=== PATIENT | male | born 1990 | race Caucasian/White ===

== ENCOUNTER 2021-02-03 08:00 | Observation (INO) | payer BC ==
[~2021-02-03] VITALS: Ht 182.9 cm; Wt 112.9 kg
[~2021-02-03 08:00] MED LIST: COREG 3.125M3.125 MG PO; DEXILANT60 MG PO; LISINOPRIL2.5 MG PO; MOBIC7.5 MG PO; NOVOLOG MI100 UNIT/1 SQ; RANITIDINE HCL300 M1 PO; TRESIBA FL100 UNIT/1 SQ
[2021-02-03 08:52] LABS: HEMOGLOBIN 16.5 gm/dl (14.0-17.5); RED BLOOD COUNT 5.39 M/UL (4.20-5.50); WHITE BLOOD COUNT 12.5 K/UL (4.5-11.0)
[2021-02-03] MEDS ORDERED: PROTONIX 40 MG40 M1 PO (08:54)
[2021-02-03] MEDS ORDERED: NOVOLOG100 UNIT/1 SC (08:56)
[2021-02-03] MEDS ORDERED: AMITRIPTYLINE H25 MG PO (08:57)
[2021-02-03] MEDS ORDERED: FLOVENT 220 MC7.9 GM INH (08:58)
[2021-02-03 09:01] LABS: BUN/CREATININE RATIO 15 (0-10)
--- NOTE | 2021-02-03 11:26 | NUR ---
GAVE REPORT TO AMY LOPEZ AT THIS TIME , PT IS WAITING ON HIS DAD TO SIGN CONSENT NOTED , PT IS GOING TO RM [id number]
== END 2021-02-04 12:46 | disposition home or self-care (01) ==
LOC: ER1 08:00 → CDU 10:43 → MED SURG 4 14:49
PROVIDERS: Emergency Medicine; ADMIT Surgery
DX: K35.80 Unspecified acute appendicitis (principal); E10.9 Type 1 diabetes mellitus without complications; I10 Essential (primary) hypertension; K21.9 Gastro-esophageal reflux disease without esophagitis; E66.9 Obesity, unspecified; F17.220 Nicotine dependence, chewing tobacco, uncomplicated; Z68.32 Body mass index [BMI] 32.0-32.9, adult; Z79.899 Other long term (current) drug therapy; Z20.822 Contact with and (suspected) exposure to COVID-19
CPT/HCPCS: 80053; 81001; 82962; 83690; 85025; 96374; 96375; 96376; 99285; G0378; J1100; J1170; J2001; J2250; J2270; J2405; J2543; J2704; J2710; J2795; J3010; J7030; J7120; Q9967; U0002